=== PATIENT | male | born 1975 | race Caucasian/White ===

== ENCOUNTER 2016-08-28 00:19 | Observation (INO) ==
[2016-08-28] MEDS ORDERED: Naloxone 0.4 MG/ML INJ IVP PRN (02:38)
[2016-08-28] MEDS ORDERED: *HR* OxyCODONE Immed Rel 5 MG TABLET PO PRN (02:38)
[2016-08-28] MEDS ORDERED: Ondansetron 4 MG/2 ML VIAL IVP PRN (02:38)
[2016-08-28] MEDS ORDERED: Acetaminophen 325 MG TABLET PO PRN (02:38)
[2016-08-28] MEDS ORDERED: *HR* Morphine 2 MG/ML SYRINGE IVP PRN (02:38)
[2016-08-28] MEDS ORDERED: Nitroglycerin 0.4 MG TAB.SUBL SL PRN (02:42)
[2016-08-28] MEDS ORDERED: 0.9 % Sodium Chloride 1,000 ML IVC SCH (02:45)
--- NOTE | 2016-08-28 02:46 | Internal Med History&Physical ---
Date of Encounter: 08/28/16 Time of Encounter: 02:44 Assessment and Plan (1) COPD exacerbation Current visit: No Status: Acute Acute COPD exacerbation likely secondary to sepsis from acute bacterial bronchitis Continue DuoNeb's, oxygen therapy, Solu-Medrol, start Rocephin Omeprazole for GI prophylaxis and Lovenox for DVT prophylaxis. The patient will be admitted as inpatient, expected to stay more than 2 midnights. Full code. Time spent on this admission 40 minutes. (2) Acute bronchitis Current visit: Yes Status: Acute Qualifiers: Bronchitis organism: unspecified organism Qualified Code(s): J20.9 - Acute bronchitis, unspecified (3) Tobacco use Current visit: Yes Status: Acute The patient chews tobacco, recommended to quit (4) Sepsis Current visit: Yes Status: Acute Qualifiers: Sepsis type: sepsis due to unspecified organism Qualified Code(s): A41.9 - Sepsis, unspecified organism (5) Accelerated hypertension Current visit: Yes Status: Acute Start hydralazine IV as needed (6) Elevated troponin Current visit: No Status: Acute Likely secondary to demand ischemia Telemetry, monitor troponins Start aspirin, check lipid panel, Lipitor Check a neck card exam for wall motion abnormalities, consider cardiology consult if his troponins become more elevated Internal Medicine - H&P: HPI Chief complaint: Shortness of breath Admitted From: Emergency Dept History of present illness: Mr. Murphy is a 40 year old male with a past medical history of COPD not oxygen dependent asthma who came to [place] [facility] complaining of difficulty breathing that started yesterday morning at 3 AM. Patient has been complaining of a productive cough for the past few days that turned yellow. At the emergency room chest x-ray did not show any abnormality but he was found to have a troponin of 0.04 EKG showed sinus tachycardia but no acute ischemic changes, heart rate was 107 and white blood cell is 12.8. Blood pressure is 162/103. His lactic acid was 3.4 bilirubin total was 1.9 indirect bilirubin 1.3. The patient has been wheezing for the past few days and improved after the administration of DuoNeb nebs and Solu-Medrol at the emergency room. Has been complaining of chills, denies any sick contacts. Past Med Surg Social Fam HX - Past Medical History Medical history: asthma, COPD (Not oxygen dependent), migraine, other Psychiatric history: anxiety, depression - Past Surgical History Surgical History: cholecystectomy, other (Right knee surgery, sinus surgery) - Social History Smoking Status: Former smoker (Juice tobacco, he is exposed to chemicals at work ) Smokeless Tobacco Status: No Alcohol use: occasionally Drug use: none - Additional Family History Additional family history: Mother with borderline diabetes Internal Medicine - H&P: Meds Albuterol Sulfate [Proair Hfa] 2 puff IH Q4H PRN 05/22/15 [History] Budesonide/Formoterol 160/4.5 [Symbicort 160/4.5] 2 puff IH BIDR 05/22/15 [ History] Fluticasone/Vilanterol [Breo Ellipta 100-25 Mcg INH] 1 puff IH DAILY 05/22/15 [ History] Ipratropium/Albuterol Neb [Duoneb] 3 ml IH Q4HR PRN 05/22/15 [History] Loratadine [Claritin] 10 mg PO DAILY 05/22/15 [History] Montelukast [Singulair] 10 mg PO HS 05/22/15 [History] Budesonide/Formoterol 160/4.5 [Symbicort 160/4.5] 2 puff IH BIDR 08/27/16 [ History] Allergies No Known Allergies Allergy (Verified 08/27/16 21:57) All Systems PM: A 10-system review of systems was performed and is negative for pertinent findings except as documented above in the HPI. Review of systems: Complaint momentarily of some chest pain that he thinks it was anxiety after the doctor at the ER told him that probably he was having a small heart attack at his troponin was mildly elevated. He is still short of breath. All other systems out of the 10 reviewed were negative - Constitutional Vitals: Temp Pulse Resp BP Pulse Ox 97.7 F 104 18 157/96 93 08/28/16 02:07 08/28/16 02:07 08/28/16 02:07 08/28/16 02:07 08/28/16 02:07 General appearance: Present: A&O X 3 - Head Head exam: Present: atraumatic, normocephalic - Eye Eye exam: Present: PERRL, conjuntiva pink, sclera anicteric Pupils: Present: PERRL - Neck Neck exam general surgery: Present: supple, trachea midline. Absent: lymphadenopathy - Respiratory Respiratory exam: Present: CTAB, rales, wheezes (Diffuse wheezing mainly on the left lung field with bibasilar crackles). Absent: accessory muscle use, rhonchi - Cardiovascular Cardiovascular exam: Present: RRR, +S1, +S2, tachycardia. Absent: diastolic murmur, gallop, rubs, systolic murmur - GI/Abdominal GI/Abdominal exam: Present: normal bowel sounds, soft, no peritoneal signs. Absent: distended, tenderness - Extremities Exam Extremities exam: Present: warm, radial pulses palpable and symetrical. Absent : calf tenderness, cyanotic, pedal edema - Neurological Exam Neurological exam: Present: CN II-XII intact, oriented X3, no focal deficits. Absent: pronater drift, facial droop, speech deficit - Skin Skin exam: Present: dry, intact
[2016-08-28] MEDS: *HR* Enoxaparin 40 MG/0.4 ML SYRINGE SQ SCH ×2 (03:14→05:32)
[2016-08-28 03:19] LABS: Chol/HDL Ratio 2.5 (0-4.9)
[2016-08-28] MEDS: Aspirin Enteric Coated 325 MG Tablet PO SCH ×2 (03:30→09:28)
[2016-08-28] MEDS: Ipratropium/Albuterol Neb 3 ML IH SCH ×4 (04:01→22:25)
[2016-08-28] MEDS: MethylPREDNISolone 40 MG/ML VIAL IVP SCH ×2 (09:28→15:37)
--- NOTE | 2016-08-28 09:54 | Internal Med Progress Note ---
<Norm Lau - Last Filed: 08/28/16 15:30> Date of Encounter: 08/28/16 Time of Encounter: 09:54 - Assessment and plan (1) COPD exacerbation Current Visit: No Status: Acute Assessment and plan: Improving, con't IV steroid, duoneb, PO abx, symbicort and oxygen support, f/u with pulm as outpt, he has uncontrolled COPD. (2) HTN (hypertension) Current Visit: Yes Status: Acute Assessment and plan: Will start him on HCTZ. Qualifiers: Qualified Code(s): I10 - Essential (primary) hypertension (3) Elevated troponin Current Visit: No Status: Acute Assessment and plan: Trended to 0, likely 2/2 demand ischemia in a setting of AE of COPD. (4) Acute bronchitis Current Visit: Yes Status: Acute Assessment and plan: Con't po azithromycin. Qualifiers: Bronchitis organism: unspecified organism Qualified Code(s): J20.9 - Acute bronchitis, unspecified (5) Sepsis Current Visit: Yes Status: Acute Assessment and plan: Resolved, likely from bronchitis, con't abx. Qualifiers: Sepsis type: sepsis due to unspecified organism Qualified Code(s): A41.9 - Sepsis, unspecified organism (6) DVT prophylaxis Current Visit: Yes Status: Acute Assessment and plan: Lovenox SQ. - Subjective Interval history: Pt seen and examined, he states that SOB has improved, productive cough is still there, wheezing improved. - Constitutional Vitals: Temp Pulse Resp BP Pulse Ox 98.1 F 102 16 163/108 92 08/28/16 07:22 08/28/16 07:22 08/28/16 07:22 08/28/16 07:22 08/28/16 07:22 General appearance: Present: cooperative, A&O X 3, pleasant, no acute distress, answers questions appropriately - Respiratory Respiratory exam: Present: wheezes (diffusely b/l). Absent: accessory muscle use, decreased breath sounds, rales, respiratory distress - Cardiovascular Cardiovascular exam: Present: RRR, +S1, +S2. Absent: clicks, gallop, rubs, systolic murmur - GI/Abdominal GI/Abdominal exam: Present: normal bowel sounds, soft. Absent: distended, firm , guarding, rebound, rigid, tenderness - Extremities Exam Extremities exam: Present: normal inspection, warm, radial pulses palpable and symetrical. Absent: calf tenderness, pedal edema, tenderness Internal Medicine: Result - Labs CBC & Chem 7: 08/28/16 10:05 Labs: Cardiac Enzymes 08/28/16 08/28/16 Range/Units 02:53 08:15 Troponin I 0.00 0.00 (0-0.03) ng/mL Consult Discharge Plan - Plan Referrals: Jimmy Sarabia MD [Primary Care Provider] - 09/01/16 12:00 pm <Juarez Kraft - Last Filed: 08/28/16 19:17> Date of Encounter: 08/28/16 - Constitutional Vitals: Temp Pulse Resp BP Pulse Ox 97.4 F L 108 20 156/94 93 08/28/16 14:51 08/28/16 14:51 08/28/16 16:16 08/28/16 14:51 08/28/16 16:16 Internal Medicine: Result - Labs CBC & Chem 7: 08/28/16 10:05 Labs: Short CBC 08/28/16 Range/Units 10:05 WBC 9.5 (4.3-11.1) K/mcL Hgb 15.0 D (12.9-16.9) g/dL Hct 45.4 (37.5-50.1) % Plt Count 286 (140-400) K/mcL Neutrophils # 8.5 (1.6-8.9) K/mcL Cardiac Enzymes 08/28/16 08/28/16 Range/Units 02:53 08:15 Troponin I 0.00 0.00 (0-0.03) ng/mL Liver Function 08/28/16 Range/Units 10:05 Total Bilirubin 1.4 H (0.2-1.2) mg/dL Direct Bilirubin 0.6 H (0.0-0.5) mg/dL - Attending Attestation Patient admitted earlier this AM for acute exac COPD. Agree with above assessment and plan No change for now.
[2016-08-28 10:22] LABS: Basophils % 0.1 %; Eosinophils % 0.1 %; Hematocrit 45.4 % (37.5-50.1); Immature Granulocytes % 0.5 % (0-4); Lymphocytes # 0.7 K/mcL (0.6-4.6); Lymphocytes % 7.2 %; Mean Corpuscular Hemoglobin 31.2 pg (28.0-33.3); Mean Corpuscular Volume 94.4 fL (83.0-100.0); Mean Platelet Volume 9.2 fL (9.4-12.4); Monocytes # 0.3 K/mcL (0.0-1.3); Monocytes % 2.7 %; Neutrophils # 8.5 K/mcL (1.6-8.9); Platelet Count 286 K/mcL (140-400); Red Blood Count 4.81 M/mcL (4.19-5.50); Red Cell Distribution Width 12.4 % (11.5-14.5); Segmented Neutrophils % 89.4 %
[2016-08-28 10:34] LABS: Bilirubin,Direct 0.6 mg/dL (0.0-0.5); Bilirubin,Indirect 0.8 mg/dL (0.0-1.2); Bilirubin,Total 1.4 mg/dL (0.2-1.2)
[2016-08-28] MEDS: Azithromycin 250 MG TABLET PO SCH (12:40)
[2016-08-28] MEDS: hydroCHLOROthiazide 25 MG TABLET PO SCH (12:41)
[2016-08-28] MEDS ORDERED: Albuterol 2.5 MG/3 ML NEBULIZER IH PRN (14:17)
[2016-08-28] MEDS ORDERED: Benzonatate 100 MG CAPSULE PO PRN (15:45)
[2016-08-29] MEDS: MethylPREDNISolone 40 MG/ML VIAL IVP SCH ×2 (00:11→09:29)
[2016-08-29] MEDS: Ipratropium/Albuterol Neb 3 ML IH SCH ×2 (04:55→11:39)
[2016-08-29] MEDS: *HR* Enoxaparin 40 MG/0.4 ML SYRINGE SQ SCH (05:52)
[2016-08-29 07:25] VITALS: BP 134/87
--- NOTE | 2016-08-29 08:29 | Discharge Summary ---
<Norm Lau - Last Filed: 08/29/16 08:24> Date of Encounter: 08/29/16 Time of Encounter: 08:24 - Discharge Diagnosis (1) COPD exacerbation Priority: Primary Status: Acute (2) HTN (hypertension) Priority: Secondary Status: Acute Qualifiers: Qualified Code(s): I10 - Essential (primary) hypertension (3) Elevated troponin Priority: Secondary Status: Acute (4) Acute bronchitis Priority: Primary Status: Acute Qualifiers: Bronchitis organism: unspecified organism Qualified Code(s): J20.9 - Acute bronchitis, unspecified (5) Sepsis Priority: Primary Status: Acute Qualifiers: Sepsis type: sepsis due to unspecified organism Qualified Code(s): A41.9 - Sepsis, unspecified organism (6) DVT prophylaxis Priority: Secondary Status: Acute - Discharge Medications Prescriptions: Azithromycin [Zithromax] 500 mg PO DAILY 5 Days hydroCHLOROthiazide [Hydrochlorothiazide] 12.5 mg PO DAILY #30 tablet predniSONE [PredniSONE] 10 mg PO DAILY #40 tablet Home Medications: Albuterol Sulfate [Proair Hfa] 2 puff IH Q4H PRN 05/22/15 [History] Fluticasone/Vilanterol [Breo Ellipta 100-25 Mcg INH] 1 puff IH DAILY 05/22/15 [ History] Ipratropium/Albuterol Neb [Duoneb] 3 ml IH Q4HR PRN 05/22/15 [History] Loratadine [Claritin] 10 mg PO DAILY 05/22/15 [History] Montelukast [Singulair] 10 mg PO HS 05/22/15 [History] Cetirizine HCl [Zyrtec] 10 mg PO DAILY 08/28/16 [History] Cyclobenzaprine [Flexeril] 10 mg PO HS PRN 08/28/16 [History] Azithromycin [Zithromax] 500 mg PO DAILY 5 Days 08/29/16 [Rx] hydroCHLOROthiazide [Hydrochlorothiazide] 12.5 mg PO DAILY #30 tablet 08/29/16 [ Rx] predniSONE [PredniSONE] 10 mg PO DAILY #40 tablet 08/29/16 [Rx] Allergies/Adverse Reactions: Allergies No Known Allergies Allergy (Verified 08/28/16 09:22) Date of admission: 08/28/16 03:48 Primary care physician: Jimmy Sarabia MD Consults: 08/28/16 02:38 Consult to Nurse Navigator [CONS] Routine Comment: 08/28/16 10:57 Consult to Spiral Weaver [CONS] Routine Reason for SW Consult: insurance issue Discharging clinician: Norm Lau Anticipated date of discharge: 08/29/16 - Patient Status Disposition: Home, Self-Care Condition: Good Functional capacity at discharge: independent ambulation Overall status at discharge: patient is progressing back to baseline - Discharge Instructions Instructions: Hydrochlorothiazide (By mouth), Prednisone (By mouth), Azithromycin (By mouth), Acute Bronchitis (DC), Acute Bronchitis (GEN), Chronic Obstructive Pulmonary Disease (DC), Chronic Hypertension (DC), Cigarette Smoking and Your Health, [employer] Officer (GEN) Follow Up With: Jimmy Sarabia MD [Primary Care Provider] - 09/01/16 12:00 pm (F/u for hospital d/c f/u, COPD/asthma, new HTN, possible referral to impregnator and drier helper) Forms: Work/School Release - Diet and Activity Activity: resume usual activities as tolerated Diet: low fat, low cholesterol Hospital course: Mr. Murphy is a 41 year old male with hx of COPD and asthma who presented to ER with SOB/productive cough, admitted for exacerbation of COPD, bronchitis with sepsis, during this hospital stay he was treated with IV rocephin, later changed to po azithromycin, IV steroid, bronchodilator treatment, duoneb atc and oxygen support, sepsis resolved, elevated troponin was associated with demand ischemia in a setting of AE of COPD, his breathing was back to baseline, therefore he will be d/c to home in stable condition with po abx and po steroid taper. His newly found HTN will be treated with HCTZ, close f/u with his PCP with possible referral to impregnator and drier helper. - Time Spent with Patient Total time spent providing and/or coordinating discharge services: - Constitutional Vitals: Temp Pulse Resp BP Pulse Ox 97.7 F 76 16 134/87 96 08/29/16 07:23 08/29/16 07:23 08/29/16 07:23 08/29/16 07:23 08/29/16 07:23 General appearance: Present: cooperative, A&O X 3, pleasant, no acute distress, answers questions appropriately - Respiratory Respiratory exam: Present: decreased breath sounds (slightly at base b/l). Absent: accessory muscle use, chest wall tenderness, rales, rhonchi, wheezes - Cardiovascular Cardiovascular exam: Present: RRR, +S1, +S2. Absent: gallop, rubs, systolic murmur - GI/Abdominal GI/Abdominal exam: Present: normal bowel sounds, soft. Absent: distended, firm , guarding, rebound, rigid, tenderness - Extremities Exam Extremities exam: Present: warm, radial pulses palpable and symetrical. Absent : calf tenderness, pedal edema, tenderness <Juarez Kraft - Last Filed: 08/29/16 12:50> Date of Encounter: 08/29/16 - Discharge Diagnosis (1) COPD exacerbation Status: Acute (2) Acute bronchitis Status: Acute Qualifiers: Bronchitis organism: unspecified organism Qualified Code(s): J20.9 - Acute bronchitis, unspecified (3) HTN (hypertension) Status: Acute Qualifiers: Hypertension type: essential hypertension Qualified Code(s): I10 - Essential (primary) hypertension (4) Sepsis Status: Resolved Qualifiers: Sepsis type: sepsis due to unspecified organism Qualified Code(s): A41.9 - Sepsis, unspecified organism Date of admission: 08/28/16 01:59 Primary care physician: Jimmy Sraabia MD Consults: 08/28/16 02:38 Consult to Nurse Navigator [CONS] Routine Comment: 08/28/16 10:57 Consult to Spiral Weaver [CONS] Routine Reason for SW Consult: insurance issue Hospital course: Mr. Murphy is a 41 year old male - Time Spent with Patient Total time spent providing and/or coordinating discharge services: - Constitutional Vitals: Temp Pulse Resp BP Pulse Ox 97.7 F 76 16 134/87 96 08/29/16 07:23 08/29/16 07:23 08/29/16 07:23 08/29/16 07:23 08/29/16 09:47 - Attending Attestation I examined this patient and my medical decision-making was reviewed with the Resident Physician on 08/29/16. I agree with the documented findings, disposition and treatment plan as described except to the extent set forth below. Mr. Murphy is feeling better today. He is afebrile with stable vitals. His breathing has improved. No cough now. He feels ready to go home. Exam Alert. Comfortable Heart reg No wheeze now No edema Plan D/C home today Follow up as outpatient.
[2016-08-29] MEDS: hydroCHLOROthiazide 25 MG TABLET PO SCH (09:29)
[2016-08-29] MEDS: Azithromycin 250 MG TABLET PO SCH (09:30)
[2016-08-29] MEDS: Aspirin Enteric Coated 325 MG Tablet PO SCH (09:30)
[2016-08-29] MEDS ORDERED: Budesonide/Formoterol 160/4.5 MDI IH SCH (10:00)
== END 2016-08-29 12:36 | disposition home or self-care (01) ==
LOC: 2NENU
PROVIDERS: ADMIT Internal Medicine; ATTEND Internal Medicine